=== PATIENT | female | born 1995 ===

== ENCOUNTER 2017-06-14 03:31 | Emergency (ER) | payer BC, OTHER ==
[~2017-06-14] VITALS: Ht 167.6 cm; Wt 69.1 kg
[2017-06-14 03:37] VITALS: TEMP 36.6; Ht 167.6 cm; Wt 69.1 kg
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
[2017-06-14 10:59] VITALS: BP 112/71; PULSE 78; O2SAT 98
--- NOTE | 2017-06-16 13:33 | EMERGENCY ROOM VISIT NOTE ---
ED Visit Note First contact with patient: 06:40 I received this pt in signout at the change of shift, pending MH evaluation. Pt was observed until she reached a sober state. She denied SI/HI. Pt was able to safety plan and is happy with the plan for d/c. She will return to the ED for worsening of symptoms or any medical concerns.
== END 2017-06-14 11:01 | disposition home or self-care (01) ==
LOC: EDBD 03:31 → C.EDB 03:33 → C.EDA 11:01
DX: F10.929 Alcohol use, unspecified with intoxication, unspecified (principal); R45.851 Suicidal ideations